=== PATIENT | female | born 1985 | race Caucasian/White ===

== ENCOUNTER 2017-11-03 03:36 | Emergency (ER) | payer OTHER ==
--- NOTE | 2017-11-03 03:59 | ED ---
Abdominal Pain/Female - HPI Summary HPI Summary: This patient is a 31 year old F presenting to [facility] accompanied by her mother with a chief complaint of sudden onset severe ABD pain that began at 0230 and since has resolved. She states she had a normal day yesterday, felt fine when she went to bed, and when the pain began she would not walk or talk. The patient rates the pain 1/10 in severity but states it was 10/10 on onset. Patient reports nausea. Patient denies vomiting and diarrhea. Similar sx 2 years ago in the past also resolved after a few hours of pain. LNMP was a month ago and states she should be getting it soon. - History of Current Complaint Chief Complaint: EDAbdPain Stated Complaint: RT LOWER ABD PAIN Hx Obtained From: Patient Onset/Duration: Lasting Minutes, Still Present, Resolved Timing: Constant Severity Initially: Severe Severity Currently: Mild Pain Intensity: 1 Pain Scale Used: 0-10 Numeric Location: Discrete At: RLQ Radiates: Yes Radiates to: Back Alleviating Factor(s): Spontaneous Resolution Associated Signs and Symptoms: Positive: Nausea. Negative: Vomiting, Diarrhea Allergies/Adverse Reactions: Allergies Allergy/AdvReac Type Severity Reaction Status Date / Time No Known Allergies Allergy Verified 11/03/17 03:40 Home Medications: Home Medications ALPRAZolam TAB* [Xanax TAB*] 0.5 mg PO BID PRN 11/03/17 [History Confirmed 11/03] PMH/Surg Hx/FS Hx/Imm Hx Respiratory History: Denies: Hx Bronchopulmonary Dysplasia, Hx Chronic Obstructive Pulmonary Disease (COPD) Opthamlomology History: Denies: Hx Glaucoma EENT History: Denies: Hx Hearing Problem Neurological History: Denies: Hx Transient Ischemic Attacks (TIA) Psychiatric History: Reports: Hx Anxiety Infectious Disease History: No Infectious Disease History: Denies: Traveled Outside the [place] in Last 30 Days - Social History Occupation: Unemployed Lives: With Family Alcohol Use: None Hx Substance Use: No Substance Use Type: Reports: None Hx Tobacco Use: No Smoking Status (MU): Never Smoked Tobacco Review of Systems Negative: Fever Positive: Abdominal Pain, Nausea. Negative: Vomiting, Diarrhea All Other Systems Reviewed And Are Negative: Yes Physical Exam - Summary Physical Exam Summary: Appearance: Well-appearing, Well-nourished, lying in bed comfortably Skin: Warm, dry, no obvious rash Eyes: sclera anicteric, no conjunctival pallor ENT: mucous membranes moist, pharynx appears normal Neck: Supple, nontender Respiratory: Clear to auscultation, no signs of respiratory distress Cardiovascular: Normal S1, S2. No murmurs. Normal distal pulses in tibial and radial bilaterally. Abdomen: mild TTP in the lower ABD without peroneal signs Musculoskeletal: Normal, Strength/ROM Intact Neurological: A&Ox3, awake and alert, mentation is normal, speech is fluent and appropriate Psychiatric: affect is normal, does not appear anxious or depressed Triage Information Reviewed: Yes Vital Signs On Initial Exam: Initial Vitals Temp Pulse Resp BP Pulse Ox 97.8 F 80 16 108/64 100 11/03/17 03:37 11/03/17 03:37 11/03/17 03:37 11/03/17 03:37 11/03/17 03:37 Vital Signs Reviewed: Yes Diagnostics - Vital Signs Vital Signs Temp Pulse Resp BP Pulse Ox 11/03/17 03:37 97.8 F 80 16 108/64 100 - Laboratory Result Diagrams: 11/03/17 04:01 11/03/17 04:01 Lab Statement: Any lab studies that have been ordered have been reviewed, and results considered in the medical decision making process. Re-Evaluation - Re-Evaluation First Eval Re-Evaluation Time: 04:51 Change: Improved Comment: Pt states all ABD pain and tenderness has resolved. Abdominal Pain Fem Course/Dx - Course Course Of Treatment: This patient is a 31 year old F presenting to [facility] accompanied by her mother with a chief complaint of sudden onset severe ABD pain that began at 0230 and since has resolved. She states she had a normal day yesterday, felt fine when she went to bed, and when the pain began she would not walk or talk. The patient rates the pain 1/10 in severity but states it was 10/10 on onset. Patient reports nausea. Patient denies vomiting and diarrhea. Similar sx 2 years ago in the past also resolved after a few hours of pain. LNMP was a month ago and states she should be getting it soon. Bloodwork and UA obtained. Patient will be discharged with and follow up from her [employer] to check for ovarian cysts. The patient is agreeable with this plan. - Diagnoses Provider Diagnoses: Right lower quadrant abdominal pain Discharge - Sign-Out/Discharge Documenting (check all that apply): Patient Departure - Discharge Plan Condition: Improved Disposition: HOME Patient Education Materials: Ovarian Cyst (ED) Referrals: Chau Sandoval MD [Primary Care Provider] - Additional Instructions: I would recommend speaking to your child protective investigator about these pains at your next visit, or make an appt sooner if they start occurring more frequently. - Billing Disposition and Condition Condition: IMPROVED Disposition: Home - Attestation Statements Document Initiated by Yovany: Yes Documenting Scribe: Abdiel Tenorio Provider For Whom Yovany is Documenting (Include Credential): Ever Weston MD Scribe Attestation: IAbdiel , scribed for Ever Weston MD on 11/06/17 at 1820. Scribe Documentation Reviewed: Yes Provider Attestation: The documentation as recorded by the Abdiel hernandez accurately reflects the service I personally performed and the decisions made by me, Ever Weston MD
[2017-11-03 04:14] LABS: ABS Basophils 0.1 10^3/ul (0-0.2); ABS Eosinophils 0.2 10^3/ul (0-0.6); ABS Lymphocytes 2.3 10^3/ul (1.0-4.8); ABS Monocytes 0.6 10^3/ul (0-0.8); ABS Neutrophils 1.6 10^3/ul (1.5-7.7); ABS Nucleated RBC 0 10^3/ul; Eosinophil % 4.4 % (0-6); Hematocrit 35 % (35-47); Hemoglobin 12.1 g/dl (12.0-16.0); Lymphocyte % 48.3 % (25-47); Mean Corpuscular HGB Conc 34 g/dl (31-36); Mean Corpuscular Hemoglobin 29 pg (27-31); Mean Corpuscular Volume 83 fL (80-97); Nucleated Red Blood Cells % 0.1; Platelet Count 157 10^3/ul (150-450); Red Blood Count 4.23 10^6/ul (4.00-5.40); Red Cell Distribution Width 14 % (10.5-15); White Blood Count 4.7 10^3/ul (3.5-10.8)
[2017-11-03 04:27] LABS: Urine Appearance Cloudy; Urine Blood Negative (Negative); Urine Color Yellow; Urine Ketones Negative (Negative); Urine Protein Negative (Negative); Urine Red Blood Cell Trace(0-2/hpf) (Absent); Urine Specific Gravity 1.017 (1.010-1.030); Urine Urobilinogen Negative (Negative); Urine White Blood Cell Trace(0-5/hpf) (Absent)
[2017-11-03 04:29] LABS: EGFR Non-African American 82.5 (>60)
[2017-11-03 05:09] VITALS: BP 0/0
== END 2017-11-03 05:08 | disposition home or self-care (01) ==
LOC: ED 03:36
DX: R10.31 Right lower quadrant pain (principal)
CPT/HCPCS: 36415; 80053; 81003; 81015; 84702; 85025; 87086; 99282

== ENCOUNTER 2018-04-12 18:40 | Emergency (ER) | payer OTHER ==
[2018-04-12] MEDS ORDERED: cefTRIAXone(*) 1 GM in NS 0.9% 50 ML* 50 ML IVPB ONE (19:36)
[2018-04-12] MEDS ORDERED: Acetaminophen TAB* 325 MG PO ONE (19:36)
[2018-04-12] MEDS ORDERED: NS 0.9% 1000 ML** 1,000 ML IV ONE (19:36)
[2018-04-12 20:01] LABS: ABS Basophils 0 10^3/ul (0-0.2); ABS Eosinophils 0.1 10^3/ul (0-0.6); ABS Lymphocytes 0.7 10^3/ul (1.0-4.8); ABS Monocytes 0.7 10^3/ul (0-0.8); ABS Neutrophils 10.6 10^3/ul (1.5-7.7); ABS Nucleated RBC 0 10^3/ul; Eosinophil % 0.4 %; Hematocrit 34 % (35-47); Hemoglobin 11.7 g/dl (12.0-16.0); Lymphocyte % 6.1 %; Mean Corpuscular HGB Conc 35 g/dl (31-36); Mean Corpuscular Hemoglobin 30 pg (27-31); Mean Corpuscular Volume 87 fL (80-97); Mean Platelet Volume 10.6 fL (7.4-10.4); Nucleated Red Blood Cells % 0; Platelet Count 144 10^3/ul (150-450); Red Blood Count 3.92 10^6/ul (4.00-5.40); Red Cell Distribution Width 13 % (10.5-15); White Blood Count 12.2 10^3/ul (3.5-10.8)
--- NOTE | 2018-04-12 20:02 | ED ---
Abdominal Pain/Female - HPI Summary HPI Summary: This patient is a 32 year old F presenting to [facility] accompanied by and children with a chief complaint of fever, R flank pain, and n/v/d today. Pain is 6/10 in severity. She reports dysuria and cloudy urine. Patient has been taking ibuprofen throughout the day but is unable to keep fever down. Denies previous abdominal surgeries and a history of kidney stones. - History of Current Complaint Chief Complaint: EDGeneral Stated Complaint: FEVER Time Seen by Provider: 04/12/18 19:45 Hx Obtained From: Patient Onset/Duration: Lasting Days Severity Currently: Moderate Pain Intensity: 6 Pain Scale Used: 0-10 Numeric Location: Discrete At: RLQ, Flank Alleviating Factor(s): Nothing Associated Signs and Symptoms: Positive: Fever, Back Pain, Urinary Symptoms, Nausea, Vomiting, Diarrhea Allergies/Adverse Reactions: Allergies Allergy/AdvReac Type Severity Reaction Status Date / Time No Known Allergies Allergy Verified 04/12/18 18:47 Home Medications: Home Medications Norgestimate-Ethinyl Estradiol [Pkf-Vz-Mxheia Tablet] 1 tab PO DAILY 04/12/18 [ History Confirmed 04/12/18] PMH/Surg Hx/FS Hx/Imm Hx Respiratory History: Denies: Hx Bronchopulmonary Dysplasia, Hx Chronic Obstructive Pulmonary Disease (COPD) Sensory History: Denies: Hx Glaucoma, Hx Hearing Problem Opthamlomology History: Denies: Hx Glaucoma Neurological History: Denies: Hx Transient Ischemic Attacks (TIA) Psychiatric History: Reports: Hx Anxiety - Surgical History Surgery Procedure, Year, and Place: none reported Infectious Disease History: No Infectious Disease History: Denies: Traveled Outside the [place] in Last 30 Days - Family History Known Family History: Negative: Renal Disease - Social History Alcohol Use: None Hx Substance Use: No Substance Use Type: Reports: None Hx Tobacco Use: No Smoking Status (MU): Never Smoked Tobacco Review of Systems Positive: Fever Positive: Abdominal Pain, Vomiting, Diarrhea, Nausea Positive: dysuria, other - cloudy urine All Other Systems Reviewed And Are Negative: Yes Physical Exam - Summary Physical Exam Summary: Appearance: ill appearing, mild pain distress Skin: warm, dry, reflects adequate perfusion Head/face: normal Eyes: EOMI, VICKI ENT: normal Neck: supple, non-tender Respiratory: CTA, breath sounds present Cardiovascular: RRR, pulses symmetrical Abdomen:RLQ and R flank tenderness, soft Musculoskeletal: normal, strength/ROM intact Neuro: normal, sensory motor intact, A&Ox3 Triage Information Reviewed: Yes Vital Signs On Initial Exam: Initial Vitals Temp Pulse Resp BP Pulse Ox 102.6 F 124 14 122/77 98 04/12/18 18:43 04/12/18 18:43 04/12/18 18:43 04/12/18 18:43 04/12/18 18:43 Vital Signs Reviewed: Yes Diagnostics - Vital Signs Vital Signs Temp Pulse Resp BP Pulse Ox 04/12/18 18:43 102.6 F 124 14 122/77 98 - Laboratory Result Diagrams: 04/12/18 19:54 04/12/18 19:51 Lab Statement: Any lab studies that have been ordered have been reviewed, and results considered in the medical decision making process. - CT CT A/P CT Interpretation Completed By: Radiologist Summary of CT Findings: No CT findings to correlate with patient's symptomatology. Specifically no. obstructing renal or ureteral calculi. . ED physician has reviewed this report. Abdominal Pain Fem Course/Dx - Course Course Of Treatment: 32 year old F presenting to [facility] accompanied by and children with a chief complaint of fever, R flank pain, and n/v/d today. Pain is 6/10 in severity. She reports dysuria and cloudy urine. Bloodwork and UA obtained, indicative of a UTI. CT A/P reveals, "No CT findings to correlate with patient's symptomatology. Specifically no. obstructing renal or ureteral calculi. " as per radiolgist. Patient is given 650mg tylenol, ceftriaxone, and 1000mls IVF. Results discussed with patient. Patient will be discharged home with a rx for ciprofloxacin. - Diagnoses Differential Diagnosis: Positive: Pneumonia, Renal Colic, Urinary Tract Infection Provider Diagnoses: UTI (urinary tract infection), Fever Discharge - Sign-Out/Discharge Documenting (check all that apply): Patient Departure - discharge Patient Received Moderate/Deep Sedation with Procedure: No - Discharge Plan Condition: Stable Disposition: HOME Prescriptions: Ciprofloxacin HCl [Cipro 500 MG TAB] 500 mg PO BID #14 tab Patient Education Materials: Urinary Tract Infection in Women (ED) Referrals: Chau Sandoval MD [Primary Care Provider] - 2 Days Additional Instructions: RETURN TO THE EMERGENCY DEPARTMENT FOR CHANGING OR WORSENING SYMPTOMS. - Billing Disposition and Condition Condition: STABLE Disposition: Home - Attestation Statements Document Initiated by Pacoibclayton: Yes Documenting Scribe: Fdeerica Tobias Provider For Whom Yovany is Documenting (Include Credential): Black Head MD Scribe Attestation: Federica Gonsalves, scribed for Black Head MD on 04/13/18 at 1328. Scribe Documentation Reviewed: Yes Provider Attestation: The documentation as recorded by the Federica hernandez accurately reflects the service I personally performed and the decisions made by Black parkinson MD Status of Scribe Document: Viewed
[2018-04-12 20:19] LABS: Urine Appearance Cloudy; Urine Bacteria Absent (Absent); Urine Bilirubin Negative (Negative); Urine Blood 3+ (Negative); Urine Color Yellow; Urine Glucose Negative (Negative); Urine Ketones 1+ (Negative); Urine Nitrite Negative (Negative); Urine Protein 2+(100 mg/dL) (Negative); Urine Red Blood Cell 2+(6-10/hpf) (Absent); Urine Specific Gravity 1.013 (1.010-1.030); Urine Squamous Epithelial Cell Present (Absent); Urine Transitional Epithelial Present (Absent); Urine Urobilinogen Negative (Negative); Urine White Blood Cell 3+(>20/hpf) (Absent)
[2018-04-12 20:20] LABS: ALT 14 U/L (7-52); AST 15 U/L (13-39); Albumin 4.1 g/dL (3.2-5.2); Albumin/Globulin Ratio 1.5 (1-3); Alkaline Phosphatase 48 U/L (34-104); Anion Gap 7 mmol/L (2-11); BUN/Creatinine Ratio 9.5 (8-20); Blood Urea Nitrogen 7 mg/dL (6-24); CO2 Carbon Dioxide 24 mmol/L (22-32); Calcium 8.8 mg/dL (8.6-10.3); Chloride 103 mmol/L (101-111); EGFR African American 110.1 (>60); Globulin 2.8 g/dL (2-4); Glucose 106 mg/dL (70-100); Indirect Bilirubin 0.3 mg/dL (0.3-1.0); Potassium 3.9 mmol/L (3.5-5.0); Sodium 134 mmol/L (135-145); Total Protein 6.9 g/dL (6.4-8.9)
[2018-04-12 20:26] LABS: HCG Pregnancy < 0.60 mIU/mL
[2018-04-12 20:55] LABS: Influenza A Molecular NEGATIVE (Negative); Influenza B Molecular NEGATIVE (Negative)
[2018-04-12] MEDS ORDERED: Ciprofloxacin TAB* 500 MG PO ONE (21:39)
[2018-04-12 22:21] VITALS: BP 113/61
== END 2018-04-12 22:24 | disposition home or self-care (01) ==
LOC: ED 18:40
DX: N39.0 Urinary tract infection, site not specified (principal); R50.9 Fever, unspecified; R11.2 Nausea with vomiting, unspecified; R19.7 Diarrhea, unspecified
CPT/HCPCS: 36415; 74176; 80048; 80076; 81003; 81015; 83690; 84702; 85025; 87077; 87086; 87186; 96361; 96365; 99284; A9270-GY; J0696

== ENCOUNTER 2019-04-02 12:27 | Emergency (ER) | payer OTHER ==
--- NOTE | 2019-04-02 14:09 | ED ---
Lower Extremity - HPI Summary HPI Summary: Patient is a 33 y/o F presenting to [facility] with complaints of right ankle pain and swelling. She states that she was at her daughter's gymnastics class earlier today and noticed that her daughter was going to collide with another baby. When going over to prevent this, she rolled her right ankle and fell. She states that she is not able to bear weight. 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 Home medications and allergies are reviewed. No fever as vitals show temp of 99 F. - History of Current Complaint Chief Complaint: EDExtremityLower Stated Complaint: ANKLE INJURY PER PT Time Seen by Provider: 04/02/19 13:20 Hx Obtained From: Patient Mechanism Of Injury: Fall From A Standing Position, Twisted Onset of Pain: Prior to Arrival Onset/Duration: Still Present Severity Currently: Severe Pain Intensity: 7 Pain Scale Used: 0-10 Numeric Timing: Constant Location: Is Discrete @ - RIGHT ANKLE Associated Signs And Symptoms: Positive: Swelling Aggravating Factor(s): Weight Bearing - Allergies/Home Medications Allergies/Adverse Reactions: Allergies Allergy/AdvReac Type Severity Reaction Status Date / Time No Known Allergies Allergy Verified 04/02/19 12:55 Home Medications: Home Medications Ibuprofen 800 mg PO ONCE 04/02/19 [History Confirmed 04/02/19] PMH/Surg Hx/FS Hx/Imm Hx Endocrine/Hematology History: Denies: Hx Bone Marrow Disease, Hx Diabetes, Hx Sickle Cell Disease, Hx Anemia Cardiovascular History: Denies: Hx Hypertension, Hx Pacemaker/ICD Respiratory History: Reports: Other Respiratory Problems/Disorders - CHRONIC SINUSITIS Denies: Hx Bronchopulmonary Dysplasia, Hx Chronic Obstructive Pulmonary Disease (COPD) History: Reports: Hx Kidney Infection - 4 MONTHS AGO, OK NOW Denies: Hx Renal Disease Musculoskeletal History: Reports: Hx Arthritis, Other Musculoskeletal History - LOWER BACK PAIN- DISC ISSUE Sensory History: Reports: Hx Contacts or Glasses - GLASSES Denies: Hx Cataracts, Hx Glaucoma, Hx Hearing Aid, Hx Hearing Problem Opthamlomology History: Reports: Hx Contacts or Glasses - GLASSES Denies: Hx Cataracts, Hx Glaucoma Neurological History: Reports: Hx Migraine - LAST ONE 1 MONTH AGO Denies: Hx Transient Ischemic Attacks (TIA) Psychiatric History: Reports: Hx Anxiety Denies: Hx Panic Disorder - Surgical History Surgery Procedure, Year, and Place: RIGHT ANKLE ORIF, THEN HARDWARE REMOVAL Hx Anesthesia Reactions: Yes - TAKES A WHILE TO WAKE UP Infectious Disease History: No Infectious Disease History: Denies: Traveled Outside the [place] in Last 30 Days - Family History Known Family History: Negative: Renal Disease - Social History Alcohol Use: Occasionally Alcohol Amount: 7 DRINKS/WEEK Hx Substance Use: No Substance Use Type: Reports: None Hx Tobacco Use: No Smoking Status (MU): Never Smoked Tobacco Have You Smoked in the Last Year: No Review of Systems Negative: Fever - No fever as vitals show temp of 99 F. Positive: Myalgia - right ankle , Edema - right ankle All Other Systems Reviewed And Are Negative: Yes Physical Exam - Summary Physical Exam Summary: Constitutional: Well-developed, Well-nourished, Alert. (-) Distressed Skin: Warm, Dry HENT: Normocephalic; Atraumatic Eyes: Conjunctiva normal Neck: Musculoskeletal ROM normal neck. (-) JVD, (-) Stridor, (-) Tracheal deviation Cardio: Rhythm regular, rate normal, Heart sounds normal; Intact distal pulses; The pedal pulses are 2+ and symmetric. Radial pulses are 2+ and symmetric. (-) Murmur Pulmonary/Chest wall: Effort normal. (-) Respiratory distress, (-) Wheezes, (-) Rales Abd: Soft, (-) tenderness, (-) Distension, (-) Guarding, (-) Rebound Musculoskeletal: Patient is noted to have swelling at the right ankle as well as bilateral malleolar tenderness of the right foot Lymph: (-) Cervical adenopathy Neuro: Alert, Oriented x3 Psych: Mood and affect Normal Triage Information Reviewed: Yes Vital Signs On Initial Exam: Initial Vitals Temp Pulse Resp BP Pulse Ox 99.0 F 73 16 128/72 100 04/02/19 12:52 04/02/19 12:52 04/02/19 12:52 04/02/19 12:52 04/02/19 12:52 Vital Signs Reviewed: Yes Procedures - Sedation Patient Received Moderate/Deep Sedation with Procedure: No Diagnostics - Vital Signs Vital Signs Temp Pulse Resp BP Pulse Ox 04/02/19 12:52 99.0 F 73 16 128/72 100 - Laboratory Lab Statement: Any lab studies that have been ordered have been reviewed, and results considered in the medical decision making process. - Radiology RIGHT ANKLE X-RAY Radiology Interpretation Completed By: Radiologist Summary of Radiographic Findings: RIGHT ANKLE X-RAY IMPRESSION: SOFT TISSUE SWELLING, NO FRACTURE IS SEEN. THIS REPORT WAS REVIEWED BY ED PHYSICIAN. Re-Evaluation - Re-Evaluation First Eval Re-Evaluation Time: 13:58 Comment: X-ray was discussed with the patient, patient was discharged to home. Lower Extremity Course/Dx - Course Course Of Treatment: Patient is a 33 y/o F presenting to [facility] with complaints of right ankle pain and swelling. She states that she was at her daughter's gymnastics class earlier today and noticed that her daughter was going to collide with another baby. When going over to prevent this, she rolled her right ankle and fell. She states that she is not able to bear weight. 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 On physical exam, patient is noted to have swelling at the right ankle as well as bilateral malleolar tenderness of the right foot. RIGHT ANKLE X-RAY IMPRESSION: SOFT TISSUE SWELLING, NO FRACTURE IS SEEN. X-ray was discussed with the patient, patient was discharged to home. Patient given crutches and ankle gel splint. - Diagnoses Provider Diagnoses: Right ankle sprain Discharge ED - Sign-Out/Discharge Documenting (check all that apply): Patient Departure - discharge - Discharge Plan Condition: Stable Disposition: HOME Patient Education Materials: Ankle Sprain (ED) Referrals: Chau Sandoval MD [Primary Care Provider] - 3 Days Additional Instructions: PLEASE RETURN TO ED FOR ANY NEW OR CONCERNING SYMPTOMS. PLEASE FOLLOW UP WITH YOUR PRIMARY CARE PHYSICIAN WITHIN THREE DAYS. - Billing Disposition and Condition Condition: STABLE Disposition: Home - Attestation Statements Document Initiated by Yovany: Yes Documenting Scribe: VINAY LEAL Provider For Whom Yovany is Documenting (Include Credential): TIMOTEO LOPEZ DO Scribe Attestation: IVINAY scribed for TIMOTEO LOPEZ DO on 04/02/19 at 1432. Scribe Documentation Reviewed: Yes Provider Attestation: The documentation as recorded by the VINAY hernandez accurately reflects the service I personally performed and the decisions made by me, TIMOTEO LOPEZ DO Status of Scribe Document: Viewed
[2019-04-02 14:48] VITALS: BP 128/68
== END 2019-04-02 14:47 | disposition home or self-care (01) ==
LOC: ED 12:27
DX: S93.401A Sprain of unspecified ligament of right ankle, initial encounter (principal); X50.9XXA Other and unspecified overexertion or strenuous movements or postures, initial encounter; Y92.39 Other specified sports and athletic area as the place of occurrence of the external cause
CPT/HCPCS: 99282